=== PATIENT | female | born 1995 | race Caucasian/White ===

== ENCOUNTER 2024-03-21 13:45 | Emergency (ER) | payer MEDICAID ==
[~2024-03-21] VITALS: Ht 180.3 cm; Wt 75.5 kg
[2024-03-21] MEDS ORDERED: SUMA50TA PO (16:31)
[2024-03-21] MEDS: proCHLORperazine 10 MG/2 ml inj IM STA (16:35)
[2024-03-21] MEDS: ketorolac trometh 30MG/ML vial 30 MG/ML VIAL IM STA (16:36)
[2024-03-21 16:42] VITALS: BP 102/66; PULSE 67; RESP 18; TEMP 98; O2SAT 97
== END 2024-03-21 16:43 | disposition home or self-care (01) ==
LOC: ER 13:46
DX: G43.909 Migraine, unspecified, not intractable, without status migrainosus (principal); R11.0 Nausea; Z88.5 Allergy status to narcotic agent; Z79.899 Other long term (current) drug therapy
CPT/HCPCS: 96372; 99284; J0780; J1885